=== PATIENT | female | born 1970 | race Caucasian/White ===

== ENCOUNTER 2020-09-21 09:00 | Outpatient (CLI) | payer OTHER, MEDICAID | END 2020-09-21 10:00 | disposition home or self-care (01) | LOC: SRD 09:00 | PROVIDERS: ATTEND Family Medicine | DX: Z01.818 Encounter for other preprocedural examination (principal); N99.3 Prolapse of vaginal vault after hysterectomy | CPT/HCPCS: 71046-TC ==